=== PATIENT | female | born 1975 | race Caucasian/White ===

== ENCOUNTER 2016-10-06 17:33 | Emergency (ER) | payer MEDICAID, OTHER ==
[~2016-10-06] VITALS: Ht 165.1 cm; Wt 100.0 kg
[~2016-10-06 17:33] MED LIST: TRAZ150T75 PO
[2016-10-06 17:35] VITALS: BP 133/76; PULSE 105; RESP 14; TEMP 98.4; O2SAT 99
--- NOTE | 2016-10-06 18:29 | PD ---
HPI Chief Complaint: Complaint Time Seen by Provider: 18:21 Travel History International Travel<30 days: No Contact w/Intl Traveler<30days: No Traveled to known affect area: No History of Present Illness HPI 41-year-old female with a history of diabetes presents to the emergency department for evaluation of vaginal discharge, dysuria and pelvic pain. The patient states that she's had vaginal discharge for the past week. States that initially she had vaginal itching as well. States that she saw her PCP and told her that she thought she had a yeast infection so her PCP prescribed her Diflucan for 3 days. States that the itching resolved however the discharge has worsened. States that over the past 2 days she's also developed suprapubic pain and cramping with sensation of incomplete voiding, foul-smelling urine and vaginal discharge. She does admit to being sexually active without the use of protection. Denies fever, chills, nausea, vomiting, diarrhea, constipation. Denies , last menstrual period was 2 weeks ago. No other complaints. PFSH Past Medical History Diabetes: Yes Diminished Hearing: No Hypertension: No Insomnia: Yes ?: Unknown LMP: 4-17 : 2 Para: 1 Miscarriage: 1 Past Surgical History Section: Yes Gynecologic Surgery: Yes () Other Surgery: Yes (LEFT ELBOW) Social History Alcohol Use: No Tobacco Use: No Substance Use: No Allergies-Medications (Allergen,Severity, Reaction): Coded Allergies: Flagyl (Verified Allergy, Severe, Hives, 11/02/15) Penicillin (Verified Allergy, Severe, Rash, 11/02/15) RASH Tylenol #3 (Verified Allergy, Mild, NAUSEA, 11/02/15) Reported Meds & Prescriptions Reported Meds & Active Scripts Active Reported Adipex-P (Phentermine HCl) 37.5 Mg Tab 37.5 Mg PO DAILY Metformin (Metformin HCl) 1,000 Mg Tab 1,000 Mg PO BIDPC With meals Glyburide 5 Mg Tab 10 Mg PO DAILY Take with meals at the same time each day Trazodone (Trazodone HCl) 150 Mg Tab 150 Mg PO HS Review of Systems Except as stated in HPI: all other systems reviewed are Neg Physical Exam Narrative GENERAL: Well-nourished and well-developed pleasant female patient in no acute distress who is nontoxic appearing. SKIN: Warm and dry. HEAD: Normocephalic and atraumatic. EYES: No injection, drainage, or hyphema noted. PERRLA. EOMI. ENT: No nasal drainage noted. Oropharynx is clear. NECK: Supple and the trachea is midline. CARDIOVASCULAR: Regular rate and rhythm. RESPIRATORY: Breath sounds are equal bilaterally with no accessory muscle use, wheezing, rhonchi, or crackles. GASTROINTESTINAL: Suprapubic tenderness to palpation. Abdomen is soft and nondistended. GENITOURINARY: Normal external genitalia without lesions or erythema. Vaginal vault with thick white vaginal discharge. Cervical os was closed. No cervical motion tenderness. Uterus nontender and nonenlarged. Bilateral adnexa nontender without masses. Performed in the presence of Trinh TABOR. MUSCULOSKELETAL: No obvious deformities, swelling, cyanosis, or ecchymosis is present throughout the upper and lower extremities. Patient has full range of motion without any signs of neurovascular compromise. NEUROLOGICAL: Awake, alert, and oriented. Normal speech and gait. Cranial nerves are grossly intact. Data Data Last Documented VS Vital Signs Date Time Temp Pulse Resp B/P Pulse Ox O2 Delivery O2 Flow Rate FiO2 10/06/16 19:28 15 10/06/16 17:35 98.4 105 133/76 99 Orders Gc And Chlamydia Pcr (10/06/16 18:16) Wet Prep Profile (10/06/16 18:16) Urinalysis - C+S If Indicated (10/06/16 18:16) Ed Urine Pregnancytest Poc (10/06/16 18:16) Urine Culture (10/06/16 18:00) Ceftriaxone Inj (Rocephin Inj) (10/06/16 19:15) Lidocaine 1% Inj (50 Ml) (Xylocaine 1% I (10/06/16 19:15) Azithromycin (Zithromax) (10/06/16 19:15) Diphenhydramine (Benadryl) (10/06/16 20:45) Metronidazole (Flagyl) (10/06/16 20:45) Labs Laboratory Tests Test 10/06/16 10/06/16 18:00 19:15 Urine Color YELLOW Urine Turbidity CLOUDY Urine pH 8.0 Urine Specific [place] 1.024 Urine Protein TRACE mg/dL Urine Glucose (UA) NEG mg/dL Urine Ketones NEG mg/dL Urine Occult Blood TRACE Urine Nitrite NEG Urine Bilirubin NEG Urine Urobilinogen LESS THAN 2.0 MG/DL Urine Leukocyte Esterase MOD Urine RBC 17 /hpf Urine WBC 36 /hpf Urine Squamous Epithelial 1 /hpf Cells Urine Bacteria OCC /hpf Microscopic Urinalysis Comment CULTURE INDICATED Clue Cells (Wet Prep) NS Vaginal Trichomonas (Wet Prep) PRESENT Vaginal Yeast (Wet Prep) NS MDM Medical Decision Making Medical Screen Exam Complete: Yes Emergency Medical Condition: Yes Differential Diagnosis Urinary tract infection versus vaginitis versus PID versus STI Narrative Course 41-year-old female presents to the emergency department for evaluation of pelvic pain, vaginal discharge and dysuria. Patient is afebrile, vital signs are stable. She has some mild suprapubic tenderness otherwise abdominal examination is benign. Urinalysis shows trace occult blood, moderate leukocyte esterase, 17 red blood cells, 36 white blood cells, occasional bacteria. Wet prep is positive for Trichomonas. Gonorrhea and chlamydia is pending. Patient is treated prophylactically with Rocephin and Zithromax. She reports an allergy to Flagyl however states in the past she has had it twice and had a pruritic rash on her extremities, denies any history of anaphylaxis. States that previously she is just been pretreated with Benadryl and given Flagyl. The patient will be again given Benadryl and Flagyl and observed for evidence of anaphylaxis. After this she will be stable for discharge. She'll also be [facility] for [facility] tract infection. I discussed the case with my attending physician Dr. Bravo who is aware of the patients history, physical examination findings, and treatment plan. Diagnosis Primary Impression: Vaginal trichomoniasis Additional Impression: UTI (urinary tract infection) Qualified Code: N39.0 - Urinary tract infection without hematuria, site unspecified [facility] Patient Instructions: General Instructions Additional Instructions: No sexual activity for at least 1 week. Make sure your partner is treated. Take medication as prescribed with food and a full glass of water. Follow-up with your Primary Care Physician. Return to the ED for any acute worsening of symptoms. Med/Other Pt SpecificInfo: Prescription(s) given Disposition: 01 DISCHARGE HOME Condition: Stable Stephany Arnold October 06, 2016 18:29 Stephany Arnold October 06, 2016 18:29
[2016-10-06] MEDS ORDERED: GLYB5TAB3 PO (18:32)
[2016-10-06] MEDS ORDERED: PHEN1TAB84 PO (18:32)
[2016-10-06] MEDS ORDERED: TRAZ150T75 PO (18:32)
[2016-10-06] MEDS ORDERED: METF1000 PO (18:32)
[2016-10-06 19:05] LABS: BACTERIA, URINE OCC /hpf; BLOOD, URINE TRACE (NEG); GLUCOSE,URINE NEG (NEG); KETONE, URINE NEG (NEG); NITRITE,URINE NEG (NEG); SQUAMOUS EPITHELIAL CELL URINE 1 /hpf (0-5); URINE COLOR YELLOW (YELLW/STRAW)
[2016-10-06 19:07] LABS: COMMENT (UR) CULTURE INDICATED; CULTURE IF INDICATED CULTURE INDICATED
[2016-10-06] MEDS ORDERED: cefTRIAXone 250 MG VIAL IM ONE (19:15)
[2016-10-06] MEDS ORDERED: AZITHROMYCIN 250 MG TAB PO ONE (19:15)
[2016-10-06] MEDS ORDERED: LIDOCAINE HCL 1% 50 ML VIAL IM ONE (19:15)
[2016-10-06] MEDS ORDERED: metroNIDAZOLE 500 MG TAB PO ONE (20:45)
[2016-10-06] MEDS ORDERED: diphenhydrAMINE HCL 50 MG CAP PO ONE (20:45)
[2016-10-06] MEDS ORDERED: MACR100C2 PO (20:52)
[2016-10-06 22:06] LABS: CHLAMYDIA PCR DETECTED (NOT DETECT); NEISSERIA PCR NOT DETECTED (NOT DETECT)
== END 2016-10-06 23:28 | disposition home or self-care (01) ==
LOC: NEPD 17:33
DX: A59.01 Trichomonal vulvovaginitis (principal); N39.0 Urinary tract infection, site not specified; E11.9 Type 2 diabetes mellitus without complications
CPT/HCPCS: 81001; 84703; 87086; 87210; 87491; 87591; 96372; 99283; J0696; Q0163

== ENCOUNTER 2016-11-11 18:37 | Emergency (ER) | payer MEDICAID ==
[~2016-11-11] VITALS: Ht 165.1 cm; Wt 102.0 kg
[~2016-11-11 18:37] MED LIST changes: +GLYB5TAB3 PO; +MACR100C2 PO; +METF1000 PO; +PHEN1TAB84 PO
[2016-11-11 18:41] VITALS: BP 148/93; PULSE 110; RESP 15; TEMP 98.1; O2SAT 100
--- NOTE | 2016-11-11 20:18 | PD ---
HPI Chief Complaint: Pain: Acute or Chronic Time Seen by Provider: 20:12 Travel History International Travel<30 days: No Contact w/Intl Traveler<30days: No Traveled to known affect area: No History of Present Illness HPI This patient was examined in the presence of a female nurse. 41-year-old female presents for evaluation. She reports that yesterday she looked in mirror and noticed a area of skin abnormality near her genitals. She squeezed it several times and today it feels irritated. In addition the patient is complaining of leg swelling. She woke up with both of her legs feeling swollen around the ankles and feet. This is never happened before. She has no history of CHF. No fevers or chills. No chest pain or shortness of breath. No recent travel, recent prolonged immobilization, recent surgery. 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 She reports that she's actually been trying to eat healthier recently. No other complaints. PFSH Past Medical History Diabetes: Yes (glyburide and metformin ) Patient Takes Glucophage: Yes Diminished Hearing: No Hypertension: No Insomnia: Yes Tetanus Vaccination: Never Vaccinated Influenza Vaccination: No ?: Not LMP: 11/09/16 Menopausal: No : 2 Para: 1 Miscarriage: 1 Ovarian Cysts: Yes (right ovary, fibroids on left) Past Surgical History Section: Yes Gynecologic Surgery: Yes () Other Surgery: Yes (LEFT ELBOW) Social History Alcohol Use: Yes (once a month) Tobacco Use: No Substance Use: No Allergies-Medications (Allergen,Severity, Reaction): Coded Allergies: Flagyl (Verified Allergy, Severe, Hives, 11/02/15) Penicillin (Verified Allergy, Severe, Rash, 11/02/15) RASH Tylenol #3 (Verified Allergy, Mild, NAUSEA, 11/02/15) Reported Meds & Prescriptions Reported Meds & Active Scripts Active Reported Metformin (Metformin HCl) 1,000 Mg Tab 1,000 Mg PO BIDPC With meals Glyburide 5 Mg Tab 10 Mg PO DAILY Take with meals at the same time each day Review of Systems Except as stated in HPI: all other systems reviewed are Neg Physical Exam Narrative Examined in the presence of a female nurse GENERAL: Well-developed well-nourished female in no acute distress SKIN: Warm and dry. On the suprapubic region there is a small area of skin excoriation. There is no drainage or fluctuance or erythema. HEAD: Atraumatic. Normocephalic. EYES: Pupils equal and round. No scleral icterus. No injection or drainage. ENT: No nasal bleeding or discharge. Mucous membranes pink and moist. NECK: Trachea midline. No JVD. CARDIOVASCULAR: Regular rate and rhythm. No murmur appreciated. RESPIRATORY: No accessory muscle use. Clear to auscultation. Breath sounds equal bilaterally. GASTROINTESTINAL: Abdomen soft, non-tender, nondistended. Hepatic and splenic margins not palpable. MUSCULOSKELETAL: No obvious deformities. There is no pitting edema in the lower extremities, there is some tenderness to palpation to the calves and ankles bilaterally. Distal pulses are intact. NEUROLOGICAL: Awake and alert. No obvious cranial nerve deficits. Motor grossly within normal limits. Normal speech. Data Data Last Documented VS Vital Signs Date Time Temp Pulse Resp B/P Pulse Ox O2 Delivery O2 Flow Rate FiO2 11/11/16 20:23 98 11/11/16 18:41 98.1 15 148/93 100 Orders Complete Blood Count With Diff (11/11/16 20:26) Comprehensive Metabolic Panel (11/11/16 20:26) Ed Urine Pregnancytest Poc (11/11/16 20:32) MDM Medical Decision Making Medical Screen Exam Complete: Yes Emergency Medical Condition: Yes Medical Record Reviewed: Yes Differential Diagnosis Dependent edema, bilateral DVT, hypoalbuminemia Folliculitis, cellulitis, abscess Narrative Course 41-year-old female with one-day history of skin excoriation on the suprapubic region. Examination reveals likely there is a pustule that is expressed itself. There is no significant cellulitic changes or abscess formation on requires systemic antibiotics. I would recommend topical antibiotic cream. She is also been having some nonpitting edema to the lower extremities bilaterally for one day. Most likely this is secondary to dependent edema. I don't suspect bilateral DVT's. Plan is for basic lab work. 2052: At the end of my shift the patient was signed out to my attending who will follow-up on the lab work. Madhav Shipman Nov 11, 2016 20:18
[2016-11-11 20:23] VITALS: PULSE 98
[2016-11-11 21:03] LABS: AUTOMATED NEUTROPHIL # 6.5 TH/MM3 (1.8-7.7); BASOPHIL % 0.1 % (0.0-2.0); EOSINOPHIL # 0.1 TH/MM3 (0-0.4); EOSINOPHIL % 1.4 % (0.0-4.0); HEMATOCRIT 38.9 % (35.0-46.0); HEMO FLAGS DIFF FINAL; LYMPHOCYTE # 2.7 TH/MM3 (1.0-4.8); MEAN CORPUSCULAR HEMOGLOBIN 30.3 PG (27.0-34.0); MONO % 3.9 % (0.0-8.0); NEUT % 66.6 % (16.0-70.0); PLATELET COUNT 242 TH/MM3 (150-450); RED BLOOD COUNT 4.37 MIL/MM3 (4.00-5.30); RED CELL DISTRIBUTION WIDTH 13.4 % (11.6-17.2); WHITE BLOOD COUNT 9.8 TH/MM3 (4.0-11.0)
[2016-11-11 21:24] LABS: ANION GAP 9 MEQ/L (5-15); AST (GOT) 22 U/L (15-37); BICARBONATE 24.6 MEQ/L (21.0-32.0); BLOOD UREA NITROGEN 10 MG/DL (7-18); CHLORIDE 108 MEQ/L (98-107); GLOMERULAR FILTRATION RATE 109 ML/MIN (>89); POTASSIUM 3.4 MEQ/L (3.5-5.1); SODIUM (NA) 142 MEQ/L (136-145)
[2016-11-11 21:28] LABS: ALKALINE PHOSPHATASE 50 U/L (45-117); ALT (GPT) 44 U/L (10-53); TOTAL BILIRUBIN ADULT 0.2 MG/DL (0.2-1.0)
--- NOTE | 2016-11-11 21:59 | PD ---
Data Data Last Documented VS Vital Signs Date Time Temp Pulse Resp B/P Pulse Ox O2 Delivery O2 Flow Rate FiO2 11/11/16 20:23 98 11/11/16 18:41 98.1 15 148/93 100 Orders Complete Blood Count With Diff (11/11/16 20:26) Comprehensive Metabolic Panel (11/11/16 20:26) Ed Urine Pregnancytest Poc (11/11/16 20:32) Labs Laboratory Tests Test 11/11/16 20:50 White Blood Count 9.8 TH/MM3 Red Blood Count 4.37 MIL/MM3 Hemoglobin 13.2 GM/DL Hematocrit 38.9 % Mean Corpuscular Volume 89.0 FL Mean Corpuscular Hemoglobin 30.3 PG Mean Corpuscular Hemoglobin 34.0 % Concent Red Cell Distribution Width 13.4 % Platelet Count 242 TH/MM3 Mean Platelet Volume 8.2 FL Neutrophils (%) (Auto) 66.6 % Lymphocytes (%) (Auto) 28.0 % Monocytes (%) (Auto) 3.9 % Eosinophils (%) (Auto) 1.4 % Basophils (%) (Auto) 0.1 % Neutrophils # (Auto) 6.5 TH/MM3 Lymphocytes # (Auto) 2.7 TH/MM3 Monocytes # (Auto) 0.4 TH/MM3 Eosinophils # (Auto) 0.1 TH/MM3 Basophils # (Auto) 0.0 TH/MM3 CBC Comment DIFF FINAL Differential Comment Sodium Level 142 MEQ/L Potassium Level 3.4 MEQ/L Chloride Level 108 MEQ/L Carbon Dioxide Level 24.6 MEQ/L Anion Gap 9 MEQ/L Blood Urea Nitrogen 10 MG/DL Creatinine 0.61 MG/DL Estimat Glomerular Filtration 109 ML/MIN Rate Random Glucose 134 MG/DL Calcium Level 8.6 MG/DL Total Bilirubin 0.2 MG/DL Aspartate Amino Transf 22 U/L (AST/SGOT) Alanine Aminotransferase 44 U/L (ALT/SGPT) Alkaline Phosphatase 50 U/L Total Protein 6.9 GM/DL Albumin 3.3 GM/DL [facility] Medical Record Reviewed: Yes Supervised Visit with MELYSSA: Yes Narrative Course The history, exam, and medical decision-making in the associated midlevel provider note were completed with my assistance. I reviewed and agree with the findings presented. I attest that I had a [id number] encounter with the patient on the same day, and personally performed and documented my assessment and findings in the medical record. *My assessment and Findings: This is a 41-year-old female who presents to the emergency department with multiple complaints including folliculitis and lower extremity swelling. She has nonpitting edema of the bilateral lower extremities. She has no redness, tenderness or asymmetry to suggest a DVT. She does have a slight erythematous rash and she says both of the legs or itching. It's possible she is having allergic reaction. I advised her to take Benadryl, obtain compression stockings and elevate her legs at home. Labs are reassuring. She is a patient of the [facility] and I told her to make an appointment on if her symptoms aren't improving. Diagnosis Primary Impression: Edema Qualified Code: R60.9 - Edema, unspecified type Patient Instructions: General Instructions Additional Instruction: If you develop severe chest pain, shortness of breath, sweating, lightheadedness , dizziness or difficulty breathing return to the emergency department immediately. Followup with your primary care physician in 2-3 days if your symptoms are not resolved. Med/Other Pt SpecificInfo: No Change to Meds Disposition: 01 DISCHARGE HOME Condition: Stable Jenni Kenney MD Nov 11, 2016 21:59
[2016-11-11 22:44] VITALS: BP 130/76
== END 2016-11-11 22:45 | disposition home or self-care (01) ==
LOC: NEPD 18:37
DX: M79.89 Other specified soft tissue disorders (principal); L73.9 Follicular disorder, unspecified
CPT/HCPCS: 80053; 84703; 85025; 99283

== ENCOUNTER 2017-03-10 11:22 | Emergency (ER) | payer SELFPAY ==
[~2017-03-10] VITALS: Ht 165.1 cm; Wt 100.0 kg
[~2017-03-10 11:22] MED LIST changes: -MACR100C2 PO; -PHEN1TAB84 PO; -TRAZ150T75 PO
[2017-03-10 11:24] VITALS: BP 137/93; PULSE 125; RESP 18; TEMP 98.6; O2SAT 96
--- NOTE | 2017-03-10 11:28 | PD ---
Physical Exam Date Seen by Provider: Mar 10, 2017 Time Seen by Provider: 11:26 Narrative 41 yo female here for cold like symptoms. Vomited yesterday. Not today. Sore throat with swelling. Congestion. Cold sweats and chills. Going on since Thursday. No recent travel. Pain is 10/10 per patient. Mainly on the throat and due to body aches. No abdominal pain. No SOB Vitals are stable in triage except for tachycardia. Awaiting bed placement. Data Data Last Documented VS Vital Signs Date Time Temp Pulse Resp B/P (MAP) Pulse Ox O2 Delivery O2 Flow Rate FiO2 03/10/17 11:24 98.6 125 18 137/93 (108) 96 Room Air [facility] Medical Record Reviewed: Yes Supervised Visit with MELYSSA: Richie Armstrong Mar 10, 2017 11:28
[2017-03-10] MEDS ORDERED: ONDANSETRON HCL 4 MG/2 ML VIAL IV PUSH ONE (13:00)
[2017-03-10] MEDS ORDERED: SODIUM CHLORIDE 0.9% FLUSH 10 ML FLUSH IVF PRN (13:00)
[2017-03-10] MEDS ORDERED: SODIUM CHLOR 0.9% 1000 ML INJ 1,000 ML IV ONE (13:00)
--- NOTE | 2017-03-10 13:04 | PD ---
HPI Chief Complaint: Cold / Flu Symptoms Time Seen by Provider: 12:52 Travel History International Travel<30 days: No Contact w/Intl Traveler<30days: No Traveled to known affect area: No History of Present Illness HPI 41-year-old female presents to the emergency department for evaluation of flulike symptoms since Thursday, 3 days ago. She reports sore throat, body aches, mild cough. She states she vomited several times yesterday. She states she has not eaten today, but has not vomited today. No abdominal pain. No diarrhea or constipation. Patient is unsure she has run a fever. No chest pain or shortness of breath. She reports history of type 2 diabetes. PENDING SALE TO [facility] Past Medical History Blood Disorders: No Diabetes: Yes Patient Takes Glucophage: No Diminished Hearing: No Hypertension: No Insomnia: Yes ?: Not LMP: 03/01/17 Menopausal: No : 2 Para: 1 Miscarriage: 1 Ovarian Cysts: Yes (right ovary, fibroids on left) Past Surgical History Section: Yes Gynecologic Surgery: Yes () Other Surgery: Yes (LEFT ELBOW) Social History Alcohol Use: Yes (once a month) Tobacco Use: No Substance Use: No Allergies-Medications (Allergen,Severity, Reaction): Coded Allergies: metronidazole (Unverified Allergy, Severe, Hives, 03/10/17) penicillin G (Unverified Allergy, Severe, Rash, 03/10/17) RASH acetaminophen (Unverified Allergy, Mild, NAUSEA, 03/10/17) codeine (Unverified Allergy, Mild, NAUSEA, 03/10/17) Reported Meds & Prescriptions Reported Meds & Active Scripts Active Reported Glyburide 5 Mg Tab 10 Mg PO DAILY Take with meals at the same time each day Review of Systems Except as stated in HPI: all other systems reviewed are Neg Physical Exam Narrative GENERAL: Well-nourished, well-developed female patient, ambulatory. Afebrile. ENT: Mucosa pink and moist. Bilateral tonsils and uvula are erythematous, but no exudates. No uvular edema. No uvular, palatal, or tonsillar deviation. Airway patent. Nasal turbinates appear normal without nasal blood, purulent drainage or septal hematoma. Bilateral tympanic membranes are clear without erythema or perforation. SKIN: Focused skin assessment warm/dry. HEAD: Normocephalic. Atraumatic. EYES: No scleral icterus. No injection or drainage. NECK: Supple, trachea midline. No JVD or lymphadenopathy. CARDIOVASCULAR: Regular rhythm without murmurs, gallops, or rubs. Patient is tachycardic. RESPIRATORY: Breath sounds equal bilaterally. No accessory muscle use. Lungs sounds are clear to auscultation. GASTROINTESTINAL: Abdomen soft, non-tender, nondistended. MUSCULOSKELETAL: No cyanosis, or edema. BACK: Nontender without obvious deformity. No CVA tenderness. Data Data Last Documented VS Vital Signs Date Time Temp Pulse Resp B/P (MAP) Pulse Ox O2 Delivery O2 Flow Rate FiO2 03/10/17 13:28 113 03/10/17 12:55 Room Air 03/10/17 11:24 98.6 18 96 Orders Orders Group A Rapid Strep Screen (03/10/17 11:28) Influenzae A/B Antigen (03/10/17 11:28) Complete Blood Count With Diff (03/10/17 13:00) Basic Metabolic Panel (Bmp) (03/10/17 13:00) Iv Access Insert/Monitor (03/10/17 13:00) Ecg Monitoring (03/10/17 13:00) Oximetry (03/10/17 13:00) Ondansetron Inj (Zofran Inj) (03/10/17 13:00) Sodium Chlor 0.9% 1000 Ml Inj (Ns 1000 M (03/10/17 13:00) Sodium Chloride 0.9% Flush (Ns Flush) (03/10/17 13:00) Strep Culture (Group A) (03/10/17 11:50) Labs Laboratory Tests Test 03/10/17 13:20 White Blood Count 10.8 TH/MM3 Red Blood Count 4.81 MIL/MM3 Hemoglobin 14.7 GM/DL Hematocrit 43.9 % Mean Corpuscular Volume 91.3 FL Mean Corpuscular Hemoglobin 30.6 PG Mean Corpuscular Hemoglobin Concent 33.5 % Red Cell Distribution Width 13.5 % Platelet Count 330 TH/MM3 Mean Platelet Volume 7.6 FL Neutrophils (%) (Auto) 72.1 % Lymphocytes (%) (Auto) 19.1 % Monocytes (%) (Auto) 6.8 % Eosinophils (%) (Auto) 1.3 % Basophils (%) (Auto) 0.7 % Neutrophils # (Auto) 7.8 TH/MM3 Lymphocytes # (Auto) 2.1 TH/MM3 Monocytes # (Auto) 0.7 TH/MM3 Eosinophils # (Auto) 0.1 TH/MM3 Basophils # (Auto) 0.1 TH/MM3 CBC Comment DIFF FINAL Differential Comment Blood Urea Nitrogen 8 MG/DL Creatinine 0.57 MG/DL Random Glucose 101 MG/DL Calcium Level 9.1 MG/DL Sodium Level 137 MEQ/L Potassium Level 3.8 MEQ/L Chloride Level 104 MEQ/L Carbon Dioxide Level 28.7 MEQ/L Anion Gap 4 MEQ/L Estimat Glomerular Filtration Rate 117 ML/MIN MDM Medical Decision Making Medical Screen Exam Complete: Yes Emergency Medical Condition: Yes Medical Record Reviewed: Yes Differential Diagnosis Influenza versus strep pharyngitis her sterile pharyngitis versus dehydration Narrative Course 41-year-old female presents to the emergency department for evaluation of flulike symptoms for 3 days. However, the patient is tachycardic, heart rate 125. IV access is established. Patient is given normal saline 1 L IV bolus, Zofran 4 mg IV. CBC, BMP, strep swab, and influenza swab are ordered and pending. CBC shows no acute abnormality. BMP is unremarkable. Strep is negative. Influenza is negative. Upon reevaluation, heart rate is 96. Symptoms are consistent with viral URI. She is instructed to rest, warm salt water gargles, follow-up with her primary care physician. She verbalizes agreement and understanding. Patient was discharged prescription for Zofran for nausea. The patient was discharged in stable condition with instructions, including return instructions and follow up instructions. Diagnosis Primary Impression: Upper respiratory infection Qualified Codes: J06.9 - Acute upper respiratory infection, unspecified; B97.89 - Other viral agents as the cause of diseases classified elsewhere Referrals: Primary Care Physician call for appointment Patient Instructions: General Instructions, Upper Respiratory Infection (ED) Departure Forms: Tests/Procedures, Work Release Enter return to work date: Mar 12, 2017 Additional Instructions: Take Zofran as instructed as needed for nausea/vomiting. Rest. Drink plenty of fluids. Follow-up with your primary care physician. Return to the emergency department for any acute worsening of symptoms. Med/Other Pt SpecificInfo: Prescription(s) given Scripts Ondansetron Odt (Ondansetron Odt) 4 Mg Tab 4 MG SL Q6HR Y for Nausea/Vomiting, #12 TAB 0 Refills Prov: Sadia Aranda 03/10/17 Disposition: 01 DISCHARGE HOME Condition: Stable Sadia Aranda Mar 10, 2017 13:04
[2017-03-10 13:28] VITALS: PULSE 113
[2017-03-10 13:30] LABS: AUTOMATED NEUTROPHIL # 7.8 TH/MM3 (1.8-7.7); BASOPHIL # 0.1 TH/MM3 (0-0.2); BASOPHIL % 0.7 % (0.0-2.0); EOSINOPHIL # 0.1 TH/MM3 (0-0.4); EOSINOPHIL % 1.3 % (0.0-4.0); HEMATOCRIT 43.9 % (35.0-46.0); HEMO FLAGS DIFF FINAL; LYMPH % 19.1 % (9.0-44.0); LYMPHOCYTE # 2.1 TH/MM3 (1.0-4.8); MEAN CELL VOLUME 91.3 FL (80.0-100.0); MEAN CORPUSCULAR HEMOGLOBIN 30.6 PG (27.0-34.0); MEAN CORPUSCULAR HGB CONC 33.5 % (32.0-36.0); MONO % 6.8 % (0.0-8.0); NEUT % 72.1 % (16.0-70.0); PLATELET COUNT 330 TH/MM3 (150-450); RED BLOOD COUNT 4.81 MIL/MM3 (4.00-5.30); RED CELL DISTRIBUTION WIDTH 13.5 % (11.6-17.2); WHITE BLOOD COUNT 10.8 TH/MM3 (4.0-11.0)
[2017-03-10 13:47] LABS: BICARBONATE 28.7 MEQ/L (21.0-32.0); POTASSIUM 3.8 MEQ/L (3.5-5.1)
[2017-03-10 14:04] VITALS: PULSE 96
[2017-03-10] MEDS ORDERED: ONDA4TAB7 SL (14:06)
[2017-03-10 14:18] VITALS: BP 128/85; PULSE 98; RESP 18; O2SAT 97
== END 2017-03-10 14:55 | disposition home or self-care (01) ==
LOC: NEPD 11:22
DX: J06.9 Acute upper respiratory infection, unspecified (principal); E11.9 Type 2 diabetes mellitus without complications
CPT/HCPCS: 80048; 85025; 87081; 87804; 87880; 96361; 96374; 99284; J2405; J7030

== ENCOUNTER 2017-04-04 19:10 | Emergency (ER) | payer SELFPAY ==
[~2017-04-04] VITALS: Ht 165.1 cm; Wt 100.0 kg
[~2017-04-04 19:10] MED LIST changes: -METF1000 PO; +ONDA4TAB7 SL
[2017-04-04 19:15] VITALS: BP 140/82; PULSE 98; RESP 16; TEMP 98.9; O2SAT 97
--- NOTE | 2017-04-04 20:57 | PD ---
HPI Chief Complaint: Complaint Time Seen by Provider: 20:22 Travel History International Travel<30 days: No Contact w/Intl Traveler<30days: No Traveled to known affect area: No History of Present Illness HPI 41-year-old female here for evaluation of possible UTI as well as lower back rash. Patient reports that since yesterday she has been having dysuria, increased urinary frequency, and lower abdominal cramping. She has had subjective fevers and chills as well. No vomiting or diarrhea. She is also noted several lesions on her lower back and is concerned that she may have shingles that she has had this in the past. These lesions are somewhat painful and pruritic. PFSH Past Medical History Blood Disorders: No Diabetes: Yes Patient Takes Glucophage: Yes (METFORMIN 1 MONTH AGO.) Diminished Hearing: No Hypertension: No Insomnia: Yes ?: Not LMP: 03/29/17 Menopausal: No : 2 Para: 1 Miscarriage: 1 Ovarian Cysts: Yes (right ovary, fibroids on left) Past Surgical History Section: Yes Gynecologic Surgery: Yes () Other Surgery: Yes (LEFT ELBOW) Social History Alcohol Use: Yes (once a month) Tobacco Use: No Substance Use: No Allergies-Medications (Allergen,Severity, Reaction): Coded Allergies: metronidazole (Unverified Allergy, Severe, Hives, 04/04/17) penicillin G (Unverified Allergy, Severe, Rash, 04/04/17) RASH acetaminophen (Unverified Allergy, Mild, NAUSEA, 04/04/17) codeine (Unverified Allergy, Mild, NAUSEA, 04/04/17) Reported Meds & Prescriptions Reported Meds & Active Scripts Active Ondansetron Odt 4 Mg Tab 4 Mg SL Q6HR PRN Reported Glyburide 5 Mg Tab 10 Mg PO DAILY Take with meals at the same time each day Review of Systems Except as stated in HPI: all other systems reviewed are Neg Physical Exam Narrative GENERAL: Well-developed, well-nourished, overweight, comfortable, no apparent distress. SKIN: Focused skin assessment warm/dry. Lower back with about 6 areas of erythema with surrounding induration and overlying excoriation/scabs without fluctuance. These areas were evaluated with a bedside linear ultrasound probe in shows areas of cobblestoning consistent with cellulitis, no drainable fluid collections. HEAD: Atraumatic. Normocephalic. EYES: Pupils equal and round. No scleral icterus. No injection or drainage. ENT: Mucous membranes pink and moist. CARDIOVASCULAR: Regular rate and rhythm. RESPIRATORY: No accessory muscle use. Clear to auscultation. Breath sounds equal bilaterally. GASTROINTESTINAL: Abdomen soft, non-tender, nondistended. MUSCULOSKELETAL: No obvious deformities. No clubbing. No cyanosis. No edema. No CVA tenderness. NEUROLOGICAL: Awake and alert. No obvious cranial nerve deficits. Motor grossly within normal limits. Normal speech. PSYCHIATRIC: Appropriate mood and affect; insight and judgment normal. Data Data Last Documented VS Vital Signs Date Time Temp Pulse Resp B/P (MAP) Pulse Ox O2 Delivery O2 Flow Rate FiO2 04/04/17 19:15 98.9 98 16 140/82 (101) 97 Room Air Orders Orders Urinalysis - C+S If Indicated (04/04/17 19:58) Ed Urine Pregnancytest Poc (04/04/17 19:58) Blood Glucose (04/04/17 20:41) Urine Culture (04/04/17 20:10) Labs Laboratory Tests Test 04/04/17 20:10 Urine Color YELLOW Urine Turbidity CLEAR Urine pH 6.0 Urine Specific [place] 1.033 Urine Protein TRACE mg/dL Urine Glucose (UA) NEG mg/dL Urine Ketones NEG mg/dL Urine Occult Blood MOD Urine Nitrite NEG Urine Bilirubin NEG Urine Urobilinogen LESS THAN 2.0 MG/DL Urine Leukocyte Esterase SMALL Urine RBC 4 /hpf Urine WBC 10 /hpf Urine Squamous Epithelial Cells <1 /hpf Urine Mucus FEW /lpf Microscopic Urinalysis Comment CULTURE INDICATED MDM Medical Decision Making Medical Screen Exam Complete: Yes Emergency Medical Condition: Yes Differential Diagnosis UTI, cystitis, cellulitis, folliculitis, shingles unlikely Narrative Course Vital signs reviewed. Bedside glucose is 106. UA: Moderate occult blood, small leukocyte esterase, 4 rbc's, 10 wbc's, few mucus, culture indicated. Patient has several small areas of cellulitis with overlying excoriation/scabs on her lower back. This rash does not appear to be shingles. It is more consistent with folliculitis. The patient be started on Bactrim and Keflex which will not only help to be folliculitis, but also her UA findings. Her abdominal exam is benign with no tenderness or peritoneal signs. I do not believe that there is an acute intra-abdominal/surgical process to warrant imaging at this time. A bedside ultrasound was performed and shows that her bladder is empty. She is stable for discharge home with outpatient follow-up with her primary care physician whom she has an appointment within 2 days. She was informed on when to return to the emergency department. She verbalizes understanding and agreement with plan. Diagnosis Primary Impression: UTI (urinary tract infection) Qualified Codes: N30.01 - Acute cystitis with hematuria Additional Impression: Folliculitis Referrals: Primary Care Physician 3 days Additional Instructions: Take antibiotics as prescribed. Stay hydrated with plenty of fluids. Follow-up with your primary care physician as scheduled on Thursday. Take ibuprofen for pain. Return to the emergency department for worsening symptoms or any other concerns. Scripts Cephalexin (Keflex) 500 Mg Cap 500 MG PO Q8H for Infection, #30 CAP 0 Refills Prov: Haroldo Bravo MD 04/04/17 Sulfamethoxazole-Trimethoprim (Bactrim DS) 800-160 Mg Tab 1 TAB PO BID for Infection, #20 TAB 0 Refills Prov: Haroldo Bravo MD 04/04/17 Disposition: 01 DISCHARGE HOME Condition: Stable Haroldo Bravo MD Apr 04, 2017 20:57
[2017-04-04 21:11] LABS: BLOOD, URINE MOD (NEG); COMMENT (UR) CULTURE INDICATED; CULTURE IF INDICATED CULTURE INDICATED; GLUCOSE,URINE NEG (NEG); KETONE, URINE NEG (NEG); MUCUS URINE FEW /lpf (OCC); NITRITE,URINE NEG (NEG); SQUAMOUS EPITHELIAL CELL URINE <1 /hpf (0-5); URINE COLOR YELLOW (YELLW/STRAW)
[2017-04-04] MEDS ORDERED: CEPH-460 PO (21:20)
[2017-04-04] MEDS ORDERED: BACT800T5 PO (21:20)
[2017-04-04] MEDS ORDERED: IBUPROFEN 600 MG TAB PO ONE (21:30)
[2017-04-04] MEDS ORDERED: SULFAMETHOXAZOLE-TRIMETHOPRIM DS 800-160 MG TAB PO ONE (21:30)
[2017-04-04] MEDS ORDERED: CEPHALEXIN MONOHYDRATE 500 MG CAP PO ONE (21:30)
== END 2017-04-04 21:51 | disposition home or self-care (01) ==
LOC: NEPD 19:10
DX: N30.01 Acute cystitis with hematuria (principal); L73.9 Follicular disorder, unspecified; E11.9 Type 2 diabetes mellitus without complications
CPT/HCPCS: 81001; 84703; 87086; 99284

== ENCOUNTER 2017-05-28 20:04 | Emergency (ER) | payer SELFPAY ==
[~2017-05-28 20:04] MED LIST changes: +BACT800T5 PO; +CEPH-460 PO
[2017-05-28 20:05] VITALS: BP 136/86; PULSE 109; RESP 16; TEMP 98.5; O2SAT 97
[2017-05-28] MEDS ORDERED: SODIUM CHLOR 0.9% 1000 ML INJ 1,000 ML IV ONE (21:30)
--- NOTE | 2017-05-28 21:59 | PD ---
HPI Chief Complaint: Abdominal Pain Time Seen by Provider: 21:28 Travel History International Travel<30 days: No Contact w/Intl Traveler<30days: No Traveled to known affect area: No History of Present Illness HPI The patient is a 41 year old female who presents to the [facility] emergency department with a history of abdominal pain that she reports began 2 days ago. The patient reports that the pain waxes and wanes in severity, however it is constant. She reports that when she touches on the area just below her bellybutton she feels a knot in that location and the pain becomes sharp when she presses on it. Otherwise she reports having bilateral pelvic pain. She reports that she has an associated white discharge with an odor. She reports that she recently found out that her partner cheated on her. She reports that she does not use condoms. She denies having any dysuria, hematuria , urinary urgency, or frequency. She denies having any nausea, vomiting, or diarrhea. She reports that she last moved her bowels earlier today. On review systems otherwise, the patient denies having any known fevers, cough, congestion , neck pain, chest pain, shortness of breath, or neurologic symptoms. LMP: Beginning of May. [facility] Past Medical History Narrative Medical The patient's past medical history is significant for diabetes mellitus, history of insomnia, history of constipation, history of right ovarian cyst, history of fibroid tumor on the uterus on the left side, history of cervical dysplasia status post LEEP procedure. The patient reports that she last had a Pap smear a few years ago. Blood Disorders: No Diabetes: Yes Diminished Hearing: No Hypertension: No Insomnia: Yes ?: Not LMP: 05/14/17 Menopausal: No : 2 Para: 1 Miscarriage: 1 Ovarian Cysts: Yes (right ovary, fibroids on left) Past Surgical History Narrative Surgical The patient's past surgical history is significant for a , LEEP procedure, left elbow surgery. Section: Yes Gynecologic Surgery: Yes () Other Surgery: Yes (LEFT ELBOW) Social History Alcohol Use: Yes (once a month) Tobacco Use: No Substance Use: No Allergies-Medications (Allergen,Severity, Reaction): Coded Allergies: metronidazole (Unverified Allergy, Severe, Hives, 05/28/17) penicillin G (Unverified Allergy, Severe, Rash, 05/28/17) RASH acetaminophen (Unverified Allergy, Mild, NAUSEA, 05/28/17) codeine (Unverified Allergy, Mild, NAUSEA, 05/28/17) Reported Meds & Prescriptions Reported Meds & Active Scripts Active Keflex (Cephalexin) 500 Mg Cap 500 Mg PO Q8H Bactrim DS (Sulfamethoxazole-Trimethoprim) 800-160 Mg Tab 1 Tab PO BID Ondansetron Odt 4 Mg Tab 4 Mg SL Q6HR PRN Reported Glyburide 5 Mg Tab 10 Mg PO DAILY Take with meals at the same time each day Review of Systems Except as stated in HPI: all other systems reviewed are Neg General / Constitutional: No: Fever Eyes: No: Visual changes HENT: No: Headaches Cardiovascular: No: Chest Pain or Discomfort Respiratory: No: Shortness of Breath Gastrointestinal: Positive: Abdominal Pain, No: Nausea, Vomiting, Diarrhea, Changes in Bowel Habits, Indigestion, Loss of Appetite Genitourinary: Positive: Pelvic Pain, Discharge, No: Dysuria Musculoskeletal: No: Pain Skin: No Rash Neurologic: No: Weakness, Focal Abnormalities, Change in Mentation, Slurred Speech, Sensory Disturbance Psychiatric: No: Depression Endocrine: No: Polydipsia Hematologic/Lymphatic: No: Easy Bruising Physical Exam Narrative General: The patient is a well-developed well-nourished female in no acute distress. Head and Neck exam: Head is normocephalic atraumatic. Eyes: EOMI, pupils are equal round and reactive to light. Nose: Midline septum with pink mucous membranes Mouth: Dentition unremarkable. Moist mucus membranes. Posterior oropharynx is not erythematous. No tonsillar hypertrophy. Uvula midline. Airway patent. Neck: No palpable lymphadenopathy. No nuchal rigidity. No thyromegaly. Cardiovascular: Regular rate and rhythm without murmurs, gallops, or rubs. Lungs: Clear to auscultation bilaterally. No wheezes, rhonchi, or rales. Abdomen: Soft, with reported tenderness on palpation along the suprapubic area and area just below the umbilicus, no palpable hernia. No other tenderness on palpation of the other quadrants of the abdomen. No guarding, rebound, or rigidity. Normal bowel sounds are audible. Extremities: No clubbing, cyanosis, or edema. 2+ pulses in all 4 extremities. No calf tenderness on palpation. Back: No costovertebral angle tenderness to palpation. Neurologic Exam: Grossly nonfocal. Skin Exam: No rash noted. Intact skin that is warm and dry. Gynecologic exam: The patient was placed in the dorsal lithotomy position. Her external genitalia were examined. She had no evidence of rash or lesions. The speculum was placed into her vagina and the cervix was identified. She had a physiologic appearing clear white discharge. No cervical friability. On Bimanual exam: she has cervical motion tenderness. She has bladder tenderness on bimanual exam. Cervical os is closed. No adnexal tenderness or prominence noted on palpation. No uterine tenderness or enlargement noted on palpation. Data Data Last Documented VS Vital Signs Date Time Temp Pulse Resp B/P (MAP) Pulse Ox O2 Delivery O2 Flow Rate FiO2 05/28/17 20:05 98.5 109 16 136/86 (103) 97 Room Air Orders Orders Complete Blood Count With Diff (05/28/17 21:30) Comprehensive Metabolic Panel (05/28/17 21:30) Gc And Chlamydia Pcr (05/28/17 21:30) Wet Prep Profile (05/28/17 21:30) Urinalysis - C+S If Indicated (05/28/17 21:30) Iv Access Insert/Monitor (05/28/17 21:30) Ecg Monitoring (05/28/17 21:30) Sodium Chlor 0.9% 1000 Ml Inj (Ns 1000 M (05/28/17 21:30) Ed Urine Pregnancytest Poc (05/28/17 21:30) Ceftriaxone Inj (Rocephin Inj) (05/28/17 22:00) Azithromycin Powd Pack (Zithromax Powd P (05/28/17 22:00) Urine Culture (05/28/17 21:45) Ct Abd/Pel W Iv Contrast(Rout) (05/28/17 22:38) Iohexol 350 Inj (Omnipaque 350 Inj) (05/28/17 23:28) Labs Laboratory Tests Test 05/28/17 21:45 05/28/17 21:53 White Blood Count 12.1 TH/MM3 Red Blood Count 5.22 MIL/MM3 Hemoglobin 15.8 GM/DL Hematocrit 48.0 % Mean Corpuscular Volume 91.9 FL Mean Corpuscular Hemoglobin 30.3 PG Mean Corpuscular Hemoglobin Concent 33.0 % Red Cell Distribution Width 12.9 % Platelet Count 251 TH/MM3 Mean Platelet Volume 8.1 FL Neutrophils (%) (Auto) 66.4 % Lymphocytes (%) (Auto) 28.7 % Monocytes (%) (Auto) 4.0 % Eosinophils (%) (Auto) 0.7 % Basophils (%) (Auto) 0.2 % Neutrophils # (Auto) 8.0 TH/MM3 Lymphocytes # (Auto) 3.5 TH/MM3 Monocytes # (Auto) 0.5 TH/MM3 Eosinophils # (Auto) 0.1 TH/MM3 Basophils # (Auto) 0.0 TH/MM3 CBC Comment DIFF FINAL Differential Comment Urine Color YELLOW Urine Turbidity HAZY Urine pH 5.5 Urine Specific [place] 1.028 Urine Protein TRACE mg/dL Urine Glucose (UA) NEG mg/dL Urine Ketones 10 mg/dL Urine Occult Blood SMALL Urine Nitrite NEG Urine Bilirubin NEG Urine Urobilinogen LESS THAN 2.0 MG/DL Urine Leukocyte Esterase TRACE Urine RBC 3 /hpf Urine WBC 8 /hpf Urine Squamous Epithelial Cells 7 /hpf Urine Bacteria FEW /hpf Urine Mucus FEW /lpf Microscopic Urinalysis Comment CULTURE INDICATED Blood Urea Nitrogen 12 MG/DL Creatinine 0.67 MG/DL Random Glucose 113 MG/DL Total Protein 6.8 GM/DL Albumin 3.1 GM/DL Calcium Level 8.4 MG/DL Alkaline Phosphatase 47 U/L Aspartate Amino Transf (AST/SGOT) 26 U/L Alanine Aminotransferase (ALT/SGPT) 38 U/L Total Bilirubin 0.2 MG/DL Sodium Level 139 MEQ/L Potassium Level 3.8 MEQ/L Chloride Level 106 MEQ/L Carbon Dioxide Level 24.5 MEQ/L Anion Gap 9 MEQ/L Estimat Glomerular Filtration Rate 97 ML/MIN Clue Cells (Wet Prep) NONE SEEN Vaginal Trichomonas (Wet Prep) NONE SEEN Vaginal Yeast (Wet Prep) NONE SEEN MDM Medical Decision Making Medical Screen Exam Complete: Yes Emergency Medical Condition: Yes Medical Record Reviewed: Yes Interpretation(s) Last Impressions Abdomen/Pelvis CT 05/28/172237 Signed Impressions: Service Date/Time: May 23:21 - CONCLUSION: 1. 2 cm rounded hypodensity in the right ovary likely representing a cyst. 2. 2 mm nonobstructing calculus in the left kidney. 3. 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 4. No acute findings in the abdomen and pelvis. Marcelino Villalobos MD Differential Diagnosis PID, versus ovarian cyst, versus trichomoniasis, versus cystitis Narrative Course During the course of the patients emergency department visit, the patients history, examination, and differential diagnosis were reviewed with the patient. The patient was placed on a director cardiac with oximetry and frequent blood pressure monitoring. The patient had IV access obtained and blood work sent for analysis. The patient was initially provided normal saline 1 L IV fluid bolus, Rocephin 1 g IV, 8 azithromycin 1 g by mouth. The patients laboratory studies were reviewed and remarkable for a white count of 12.1, hemoglobin 15.8, platelets 251 with a normal differential. CMP is remarkable for a glucose of 113, calcium 8.4, albumin 3.1, urinalysis shows hazy urine 10 ketones small occult blood, 3 RBCs, 8 WBCs, few bacteria, culture indicated. Wet prep is negative. Radiology studies were reviewed and remarkable for a CT scan of the abdomen and pelvis that shows a 2 cm rounded hypodensity in the right ovary likely representing a cyst, 2 mm nonobstructing calculus in the left kidney, old granulomatous disease of the spleen, no other acute findings in the abdomen and pelvis. The patient will be discharged home with a prescription for doxycycline. The patient is given information regarding following up with a sap portal architect. She is instructed to follow-up with a sap portal architect in the next week for reexamination and for a Pap smear as she has a history of cervical dysplasia and has not had a Pap smear done in years. The patient is resting comfortably and feels better, is alert and in no distress. The patients results and examination findings were discussed with the patient. The repeat examination is unremarkable and benign. The history, exam, diagnostic testing, and current condition do not suggest any significant pathology to warrant further testing, continued ED treatment, admission, or surgical evaluation at this point. The vital signs have been stable. The patient does not have uncontrollable pain, intractable vomiting, or other significant symptoms. The patient's condition is stable and appropriate for discharge. The patient will pursue further outpatient evaluation with a primary care physician or other designated or consulting physician as indicated in the discharge instructions. The patient expressed understanding and was agreeable with this plan. Diagnosis Primary Impression: PID (acute pelvic inflammatory disease) Referrals: Anson Rhodes MD 1 week [facility] week Patient Instructions: General Instructions, Pelvic Inflammatory Disease (ED) Scripts Doxycycline Hyclate (Doxycycline Hyclate) 100 Mg Cap 100 MG PO BID for Infection, #20 CAP 0 Refills Prov: Pallavi Ordoñez MD 05/29/17 Disposition: 01 DISCHARGE HOME Condition: Stable Pallavi Ordoñez MD May 28, 2017 21:59
[2017-05-28] MEDS ORDERED: AZITHROMYCIN PWD FOR SUSP 1 GM PACKET PO ONE (22:00)
[2017-05-28] MEDS ORDERED: cefTRIAXone INJ 1,000 MG in SODIUM CHLORIDE 0.9% INJ 100 ML IV ONE (22:00)
[2017-05-28 22:03] LABS: BACTERIA, URINE FEW /hpf; BASOPHIL % 0.2 % (0.0-2.0); BILIRUBIN, URINE NEG (NEG); BLOOD, URINE SMALL (NEG); EOSINOPHIL # 0.1 TH/MM3 (0-0.4); EOSINOPHIL % 0.7 % (0.0-4.0); GLUCOSE,URINE NEG (NEG); HEMOGLOBIN 15.8 GM/DL (11.6-15.3); KETONE, URINE 10 mg/dL (NEG); LYMPH % 28.7 % (9.0-44.0); LYMPHOCYTE # 3.5 TH/MM3 (1.0-4.8); MEAN CELL VOLUME 91.9 FL (80.0-100.0); MEAN CORPUSCULAR HEMOGLOBIN 30.3 PG (27.0-34.0); MEAN PLATELET VOLUME 8.1 FL (7.0-11.0); MONOCYTE # 0.5 TH/MM3 (0-0.9); MUCUS URINE FEW /lpf (OCC); NEUT % 66.4 % (16.0-70.0); NITRITE,URINE NEG (NEG); PH, URINE 5.5 (5.0-8.5); PLATELET COUNT 251 TH/MM3 (150-450); RED BLOOD COUNT 5.22 MIL/MM3 (4.00-5.30); RED CELL DISTRIBUTION WIDTH 12.9 % (11.6-17.2); SQUAMOUS EPITHELIAL CELL URINE 7 /hpf (0-5); URINE COLOR YELLOW (YELLW/STRAW); URINE LEUKOCYTE ESTERASE TRACE (NEG); WHITE BLOOD COUNT 12.1 TH/MM3 (4.0-11.0)
[2017-05-28 22:22] LABS: ALT (GPT) 38 U/L (10-53)
[2017-05-28 22:32] LABS: ALBUMIN 3.1 GM/DL (3.4-5.0); ALKALINE PHOSPHATASE 47 U/L (45-117); AST (GOT) 26 U/L (15-37); BICARBONATE 24.5 MEQ/L (21.0-32.0); BLOOD UREA NITROGEN 12 MG/DL (7-18); CALCIUM 8.4 MG/DL (8.5-10.1); CHLORIDE 106 MEQ/L (98-107); CREATININE 0.67 MG/DL (0.50-1.00); GLOMERULAR FILTRATION RATE 97 ML/MIN (>89); GLUCOSE,RANDOM 113 MG/DL (74-106); SODIUM (NA) 139 MEQ/L (136-145); TOTAL BILIRUBIN ADULT 0.2 MG/DL (0.2-1.0); TOTAL PROTEIN 6.8 GM/DL (6.4-8.2)
[2017-05-28] MEDS ORDERED: IOHEXOL 350 MG/ML 10 ML VIAL (for RAD DIAG) IVCONTRAST ONE (23:28)
--- NOTE | 2017-05-28 23:40 | RADRPT ---
EXAM DATE/TIME: 05/28/2017 23:21 [place] COMPARISON: No previous studies available for comparison. INDICATIONS : Pelvic pain with vaginal discharge IV CONTRAST: 100 cc Omnipaque 350 (iohexol) IV ORAL CONTRAST: No oral contrast ingested. RADIATION DOSE: 16.90 CTDIvol (mGy) MEDICAL HISTORY : Diabetes mellitus type 2. SURGICAL HISTORY : section. ENCOUNTER: Initial ACUITY: 1 day PAIN SCALE: 8/10 LOCATION: pelvis TECHNIQUE: Volumetric scanning of the abdomen and pelvis was performed. Using automated exposure control and ad justment of the mA and/or kV according to patient size, radiation dose was kept as low as reasonably achievable to obtain optimal diagnostic quality images. DICOM format image data is available electro nically for review and comparison. FINDINGS: LOWER LUNGS: The visualized lower lungs are clear. LIVER: Homogeneous density without lesion. There is no dilation of the biliary tree. No calcified gallston es. SPLEEN: Multiple calcified splenic granulomas. Spleen otherwise within normal limits. PANCREAS: Within normal limits. KIDNEYS: 2 mm nonobstructing calculus in the lower pole the left kidney. No evidence hydronephrosis. Kidneys o therwise within normal limits. ADRENAL GLANDS: Within normal limits. VASCULAR: There is no aortic aneurysm. BOWEL/MESENTERY: No evidence of bowel dilatation. No free air or free fluid. Appendix within normal limits. ABDOMINAL WALL: Within normal limits. RETROPERITONEUM: There is no lymphadenopathy. BLADDER: No wall thickening or mass. REPRODUCTIVE: 2 cm rounded hypodensity in the right ovary likely represent cysts. Uterus and adnexal regions otherw ise within normal limits. INGUINAL: There is no lymphadenopathy or hernia. MUSCULOSKELETAL: Within normal limits for patient age. CONCLUSION: 1. 2 cm rounded hypodensity in the right ovary likely representing a cyst. 2. 2 mm nonobstructing calculus in the left kidney. 3. 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 4. No acute findings in the abdomen and pelvis. Marcelino Villalobos MD on May 28, 2017 at 23:34 Board Certified Radiologist. This report was verified electronically.
[2017-05-29] MEDS ORDERED: DOXY100C PO (00:16)
[2017-05-29 00:27] VITALS: BP 131/71; PULSE 88; RESP 18; O2SAT 100
== END 2017-05-29 00:32 | disposition home or self-care (01) ==
LOC: NEPE 20:04
DX: N73.9 Female pelvic inflammatory disease, unspecified (principal); E11.9 Type 2 diabetes mellitus without complications
CPT/HCPCS: 74177; 80053; 81001; 84703; 85025; 87086; 87210; 87491; 87591; 96365; 99285; J0696; J7030; Q9967

== ENCOUNTER → 2017-09-23 | Outpatient (CLI) | payer MEDICAID ==
[~2017-09-23] MED LIST changes: +DOXY100C PO
== END ==
LOC: HPND 08:07
PROVIDERS: ATTEND Obstetrics & Gynecology
DX: O09.522 Supervision of elderly multigravida, second trimester (principal); O24.112 Pre-existing type 2 diabetes mellitus, in pregnancy, second trimester; O99.212 Obesity complicating pregnancy, second trimester
CPT/HCPCS: 76811

== ENCOUNTER → 2017-10-28 | Outpatient (CLI) | payer MEDICAID | LOC: HPND 07:48 | PROVIDERS: ATTEND Obstetrics & Gynecology | DX: O09.522 Supervision of elderly multigravida, second trimester (principal); O24.112 Pre-existing type 2 diabetes mellitus, in pregnancy, second trimester; O99.212 Obesity complicating pregnancy, second trimester; E66.01 Morbid (severe) obesity due to excess calories; Z68.41 Body mass index [BMI] 40.0-44.9, adult | CPT/HCPCS: 76816; 76825; 76827; 93325 ==